=== PATIENT | female | born 1960 | race Caucasian/White ===

== ENCOUNTER 2017-11-20 07:31 | Outpatient (CLI) | payer OTHER | END 2017-11-20 07:33 | disposition home or self-care (01) | LOC: SONOGRAMA 07:31 | DX: E04.1 Nontoxic single thyroid nodule (principal) ==

== ENCOUNTER 2018-06-23 08:04 | Outpatient (CLI) | payer OTHER | END 2018-06-23 08:13 | disposition home or self-care (01) | LOC: SONOGRAMA 08:04 | DX: E04.2 Nontoxic multinodular goiter (principal) ==

== ENCOUNTER 2020-03-30 08:35 | Outpatient (CLI) | payer OTHER | END 2020-03-30 08:36 | disposition home or self-care (01) | LOC: SONOGRAMA 08:35 | PROVIDERS: ATTEND Pathology Anatomic Pathology & Clinical Pathology | DX: E04.1 Nontoxic single thyroid nodule (principal) ==

== ENCOUNTER 2024-06-24 10:56 | Outpatient (CLI) | payer OTHER | END 2024-06-24 11:00 | disposition home or self-care (01) | LOC: SONOGRAMA 10:56 | PROVIDERS: ATTEND Pathology Anatomic Pathology & Clinical Pathology | DX: E04.2 Nontoxic multinodular goiter (principal) ==